=== PATIENT | female | born 1990 | race Two or more races ===

== ENCOUNTER → 2016-06-10 | Outpatient (CLI) | payer MEDICAID ==
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
== END ==
LOC: BRMIMAGING 09:46
PROVIDERS: ATTEND Registered Nurse
DX: R22.0 Localized swelling, mass and lump, head (principal); Z87.828 Personal history of other (healed) physical injury and trauma
CPT/HCPCS: 70150-PO